=== PATIENT | female | born 1955 ===

== ENCOUNTER 2017-03-12 20:58 | Emergency (ER) | payer OTHER, BC ==
--- NOTE | 2017-03-12 21:34 | C.PDOC ---
History Of Present Illness 61 year old female presents to the ED for evaluation of headache after hitting head on paper towel dispenser yesterday. Patient notes a slight headache and aggregation of her gastritis, that she feels is due to the concern over hitting her head. She denies fever, nausea, vomiting, vision change, or LOC. Time Seen by Provider: 03/12/17 21:15 Chief Complaint (Nursing): Headache History Per: Patient History/Exam Limitations: no limitations Onset/Duration Of Symptoms: Days (1 day ) Current Symptoms Are (Timing): Still Present Preceeding Symptoms: None Recent travel outside of the [place]: No Past Medical History Reviewed: Historical Data, Nursing Documentation, Vital Signs Vital Signs: Last Vital Signs Temp 98.8 F 03/12/17 21:07 Pulse 63 03/12/17 21:07 Resp 20 03/12/17 21:07 BP 132/74 03/12/17 21:07 Pulse Ox 96 03/12/17 22:28 - Medical History PMH: Anxiety, HTN Family History: States: Unknown Family Hx - Social History Hx Alcohol Use: No Hx Substance Use: No - Immunization History Hx Tetanus Toxoid Vaccination: No Hx Influenza Vaccination: No Hx Pneumococcal Vaccination: No Review Of Systems Constitutional: Negative for: Fever, Chills Cardiovascular: Negative for: Chest Pain, Palpitations Respiratory: Negative for: Cough, Shortness of Breath Gastrointestinal: Negative for: Nausea, Vomiting, Abdominal Pain, Diarrhea Neurological: Positive for: Headache Physical Exam - Physical Exam Appears: Non-toxic, No Acute Distress Skin: Warm, Dry Head: Atraumatic, Normacephalic, No Swelling, No Abrasion, No Laceration Eye(s): bilateral: Normal Inspection, PERRL, EOMI Oral Mucosa: Moist Neck: Supple Chest: Symmetrical, No Deformity Cardiovascular: Rhythm Regular Respiratory: Normal Breath Sounds, No Rales, No Rhonchi, No Wheezing Extremity: Normal ROM, No Tenderness Neurological/Psych: Oriented x3, Normal Speech, Normal Cognition, Normal Motor, Normal Sensation Gait: Steady ED Course And Treatment O2 Sat by Pulse Oximetry: 96 (room air ) Pulse Ox Interpretation: Normal - CT Scan/US Head CT Other Rad Studies (CT/US): Read By Radiologist, Radiology Report Reviewed CT/US Interpretation: IMPRESSION: 1. No intracranial hemorrhage. Progress Note: Head CT was ordered. Disposition - Disposition Referrals: [facility], [Non-Staff] - Disposition: HOME/ ROUTINE Disposition Time: 22:25 Condition: GOOD Additional Instructions: Thank you for letting us take care of you today. Your provider was Dr. Echavarria. The emergency medical care you received today was directed at your acute symptoms. If you were prescribed any medication, please fill it and take as directed. It may take several days for your symptoms to resolve. Return to the Emergency Department if your symptoms worsen, do not improve, or if you have any other problems. Please contact your doctor or call one of the physicians/clinics you have been referred to that are listed on the Patient Visit Information form that is included in your discharge packet. Bring any paperwork you were given at discharge with you along with any medications you are taking to your follow up visit. Our treatment cannot replace ongoing medical care by a primary care provider (PCP) outside of the emergency department. Thank you for allowing the [facility] team to be part of your care today. Follow up with your doctor in 2-3 days for re-evaluation and further management. Instructions: Acute Headache (ED) Forms: Gen Discharge Inst Ukrainian, Work Excuse Print Language: HONDURAN - Clinical Impression Clinical Impression: Headache - Scribe Statement The provider has reviewed the documentation as recorded by the Scribe Lavonne Arroyo All medical record entries made by the Amarilisibmarleni were at my direction and personally dictated by me. I have reviewed the chart and agree that the record accurately reflects my personal performance of the history, physical exam, medical decision making, and the department course for this patient. I have also personally directed, reviewed, and agree with the discharge instructions and disposition.
--- NOTE | 2017-03-12 22:25 | CT ---
EXAM: CT Head Without Intravenous Contrast CLINICAL HISTORY: 61 years old, female; Injury or trauma; Fall; Initial encounter; Concussion / head injury; Additional info: R/O ich and FX TECHNIQUE: Axial computed tomography images of the head/brain without intravenous contrast. All CT scans at this facility use one or more dose reduction techniques, viz.: automated exposure control; ma/kV adjustment per patient size (including targeted exams where dose is matched to indication; i.e. head); or iterative reconstruction technique. COMPARISON: No relevant prior studies available. FINDINGS: Brain: No intracranial hemorrhage. No mass. No edema. Ventricles: No hydrocephalus. Bones/joints: No acute fracture. Soft tissues: Unremarkable. Vasculature: Minimal atherosclerotic disease of intracranial arteries. Sinuses: No acute sinusitis. Mastoid air cells: No mastoid effusion. Orbits: Unremarkable as visualized. IMPRESSION: 1. No intracranial hemorrhage.
[2017-03-12 22:48] VITALS: BP 110/63; PULSE 66; RESP 16; TEMP 98.3; O2SAT 99
== END 2017-03-12 22:53 | disposition home or self-care (01) ==
LOC: C.ER 20:58
DX: R51 Headache (principal)

== ENCOUNTER 2018-10-06 12:26 | Outpatient (CLI) | payer OTHER | END 2018-10-06 12:27 | disposition home or self-care (01) | LOC: C.DEXAIC 12:26 | DX: M81.0 Age-related osteoporosis without current pathological fracture (principal); Z00.00 Encounter for general adult medical examination without abnormal findings ==